=== PATIENT | male | born 1960 | race Caucasian/White ===

== ENCOUNTER 2018-03-20 08:00 | Outpatient (CLI) | payer BC, OTHER ==
[2018-03-20 12:20] LABS: ALBUMIN 3.7 g/dL (3.2-5.5); ALBUMIN/GLOBULIN RATIO 0.9 (1.0-2.2); ALKALINE PHOSPHATASE 58 IU/L (42-121); ALT ALANINE AMINOTRANSFERASE 26 IU/L (10-60); AST ASPARTATE AMINOTRANSFERASE 25 IU/L (10-42); BILIRUBIN,TOTAL 0.5 mg/dL (0.2-1.0); BUN - BLOOD UREA NITROGEN 19 mg/dL (6-20); CALCIUM 8.7 mg/dL (8.5-10.3); CARBON DIOXIDE - CO2 28 mmol/L (21-32); CHLORIDE 102 mmol/L (101-111); CHOL/HDL RATIO 4.4 (<5.0); CHOLESTEROL 162 mg/dL; CREATININE 0.9 mg/dL (0.6-1.2); GFR - MDRD 86 (>89); GLUCOSE 93 mg/dL (70-100); HDL CHOLESTEROL 37 mg/dL; LDL CHOLESTEROL,CALCULATED 80 mg/dL; LDL/HDL RATIO 2.2 (<3.6); SODIUM 135 mmol/L (135-145); TOTAL PROTEIN 7.6 g/dL (6.7-8.2); VLDL CHOLESTEROL 45 mg/dL
== END 2018-03-20 08:01 | disposition home or self-care (01) ==
LOC: LAB.WCP 08:00
PROVIDERS: ATTEND Family Medicine
DX: Z00.00 Encounter for general adult medical examination without abnormal findings (principal); R03.0 Elevated blood-pressure reading, without diagnosis of hypertension; E29.1 Testicular hypofunction; E55.9 Vitamin D deficiency, unspecified; E78.9 Disorder of lipoprotein metabolism, unspecified; Z12.5 Encounter for screening for malignant neoplasm of prostate
CPT/HCPCS: 36415; 80053; 80061; 82306; 83721; 84153

== ENCOUNTER 2018-12-24 15:25 | Outpatient (CLI) | payer OTHER | END 2018-12-24 15:26 | disposition home or self-care (01) | LOC: SC 15:25 | PROVIDERS: ATTEND Internal Medicine Pulmonary Disease | DX: R06.81 Apnea, not elsewhere classified (principal); G47.8 Other sleep disorders; R06.83 Snoring; E66.9 Obesity, unspecified; Z68.35 Body mass index [BMI] 35.0-35.9, adult; Z87.891 Personal history of nicotine dependence | CPT/HCPCS: 99203; 99212 ==

== ENCOUNTER 2019-02-01 19:31 | Outpatient (CLI) | payer OTHER | END 2019-02-01 19:32 | disposition home or self-care (01) | LOC: SC 19:31 | PROVIDERS: ATTEND Internal Medicine Pulmonary Disease | DX: Z53.9 Procedure and treatment not carried out, unspecified reason (principal) ==

== ENCOUNTER 2019-02-02 18:54 | Outpatient (CLI) | payer OTHER | END 2019-02-02 18:55 | disposition home or self-care (01) | LOC: RT 18:54 | PROVIDERS: ATTEND Internal Medicine Gastroenterology | DX: I49.9 Cardiac arrhythmia, unspecified (principal); R03.0 Elevated blood-pressure reading, without diagnosis of hypertension | CPT/HCPCS: 93005 ==

== ENCOUNTER 2019-02-07 11:24 | Day surgery (SDC) | payer OTHER ==
[2019-02-07] MEDS ORDERED: LACTATED RINGERS 1,000 ML IV ONE (11:53)
[2019-02-07] MEDS ORDERED: LIDO GARGLE 30 ML BOTTLE ONE (12:36)
[2019-02-07] MEDS ORDERED: fentaNYL 250 MCG/5 ML VIAL IVP ONE (13:05)
[2019-02-07] MEDS ORDERED: MIDAZOLAM 2 MG/2 ML VIAL IVP ONE (13:05)
[2019-02-07 14:03] VITALS: BP 148/98
== END 2019-02-07 11:25 | disposition home or self-care (01) ==
LOC: SDS 11:24
PROVIDERS: ATTEND Internal Medicine Gastroenterology
PROC: 0DB38ZX Excision of Lower Esophagus, Via Natural or Artificial Opening Endoscopic, Diagnostic (ICD-10-PCS; principal; 2019-02-07 12:45)
PROC: 0DBK8ZZ Excision of Ascending Colon, Via Natural or Artificial Opening Endoscopic (ICD-10-PCS; 2019-02-07 12:45)
DX: Z12.11 Encounter for screening for malignant neoplasm of colon (principal); D12.2 Benign neoplasm of ascending colon; K22.70 Barrett's esophagus without dysplasia; K21.9 Gastro-esophageal reflux disease without esophagitis; E66.9 Obesity, unspecified; Z68.35 Body mass index [BMI] 35.0-35.9, adult; G47.9 Sleep disorder, unspecified; N40.1 Benign prostatic hyperplasia with lower urinary tract symptoms; N13.8 Other obstructive and reflux uropathy; R03.0 Elevated blood-pressure reading, without diagnosis of hypertension; E55.9 Vitamin D deficiency, unspecified; E78.5 Hyperlipidemia, unspecified; I49.9 Cardiac arrhythmia, unspecified; Z79.82 Long term (current) use of aspirin; Z87.891 Personal history of nicotine dependence
CPT/HCPCS: 43239; 45380; A9270; J3010; J7120

== ENCOUNTER 2019-03-21 20:33 | Outpatient (CLI) | payer BC, OTHER | END 2019-03-21 20:34 | disposition home or self-care (01) | LOC: SC 20:33 | PROVIDERS: ATTEND Internal Medicine Pulmonary Disease | DX: G47.33 Obstructive sleep apnea (adult) (pediatric) (principal); G47.61 Periodic limb movement disorder | CPT/HCPCS: 95811 ==

== ENCOUNTER 2019-04-01 09:58 | Outpatient (CLI) | payer BC, OTHER | END 2019-04-01 09:59 | disposition home or self-care (01) | LOC: SC 09:58 | PROVIDERS: ATTEND Internal Medicine Pulmonary Disease | DX: G47.33 Obstructive sleep apnea (adult) (pediatric) (principal) | CPT/HCPCS: 99212; 99213 ==

== ENCOUNTER 2019-06-18 13:29 | Outpatient (CLI) | payer BC, OTHER ==
--- NOTE | 2019-06-18 15:21 | SLEEP CARE CONSULTATION ---
Information from patient questionnaire entered by Charity Lam. I have reviewed and concur with the information entered by Charity Lam. This document represents the service I personally performed and the decisions made by me, Vladimir Santiago MD, [facility]. History of Present Illness Previous diagnosis: Severe, Obstructive Sleep Apnea-Hypopnea Syndrome AHI: 39.2 Reason for CPAP/BiPAP follow up: first compliance Equipment type: CPAP Equipment obtained from: [employer] Mask style: Full face Mask brand: kenxus HPI additional information: HPI: Mr. Carmichael returned today for follow up of nasal CPAP therapy. He was diagnosed to have severe obstructive sleep apnea-hypopnea syndrome. The patient wears a full face mask. He reports using the device nightly and all through the night. The compliance report shows usage in 30 nights out of the past 30 nights, averaging 6.1 hours a night. He complained of dryness but no particular problem with the device such as soreness on the face, epistaxis, nasal congestion or headache. He has the heated humidifier set at 5 (max). He thinks that the pressure 10 15.5 cmH2O (10 15 cmH2O on the prescription) is comfortable. On the CPAP therapy he notices improvement in his sleep quality, and that he wakes up feeling fresher in the morning and more awake/alert during the day. The average residual AHI is 2.7; and average time in large leak per day is 4 hours. The 90th percentile pressure is 10.5 cmH2O. CPAP Compliance Data - Data Reviewed with Patient Average duration of nightly device use: 6h 6m Compliance rate %: 96.7 Current pressure setting (cmH2O): 10-15.5 Humidity settin Heated hose settin Subjective Patient concerns: reports: nasal congestion, dry mouth, nose, throat Current pressure setting perceived as: comfortable Initial [place] Sleepiness Scale score: 7 Current [place] Sleepiness Scale score: 7 Allergies and Home Medications Drug allergies reviewed: Yes Home medication list reviewed: Yes Review of Systems Review of systems same as previous: Yes Physical Exam Weight (kg): 280 lb Impression and Plan IMPRESSION: 1. Obstructive Sleep Apnea-Hypopnea Syndrome, severe, with the patient doing well on nasal CPAP therapy. He has excellent compliance and significant clinical improvement. The current pressure appears effective and comfortable but the air leak is high. Overall, he is very satisfied with treatment and plans to continue with it long-term. I will lower the pressure a little. PLAN: 1. Lower autoCPAP set to 8 - 13 cmH2O. 2. Try to lose weight 3. Try other masks and nasal pillows. 4. Return for a follow up in 2 months to recheck air leak and residual AHI. I spent 100% of this [15][30] minute visit face to face with the patient with greater than 50% of this was spent time counseling the patient and coordination of care.
== END 2019-06-18 13:30 | disposition home or self-care (01) ==
LOC: SC 13:29
PROVIDERS: ATTEND Internal Medicine Pulmonary Disease
DX: G47.33 Obstructive sleep apnea (adult) (pediatric) (principal)
CPT/HCPCS: 99212; 99213

== ENCOUNTER 2019-08-20 14:44 | Outpatient (CLI) | payer BC, OTHER ==
--- NOTE | 2019-08-20 15:31 | SLEEP CARE CONSULTATION ---
Information from patient questionnaire entered by Charity Lam. I have reviewed and concur with the information entered by Charity Lam. This document represents the service I personally performed and the decisions made by me, Vladimir Santiago MD, [facility]. History of Present Illness Previous diagnosis: Severe, Obstructive Sleep Apnea-Hypopnea Syndrome AHI: 39.2 Reason for follow up: other (2 month- pressure change) Equipment type: CPAP Equipment obtained from: [employer] Prior sleep studies: Yes HPI additional information: HPI: Mr. Carmichael returned today for follow up of nasal CPAP therapy. He was diagnosed to have severe obstructive sleep apnea-hypopnea syndrome. The patient wears a full face mask (not the Respironics DreamWear nasal cushion mask that we tested him on). He continues to use the device nightly and all through the night. The compliance report shows usage in 60 nights out of the past 60 nights, averaging 5.4 hours a night. He complained of dryness but no particular problem with the device such as soreness on the face, epistaxis, nasal congestion or headache. He has the heated humidifier set at 5 (max). He thinks that the pressure 8 - 13 cmH2O (was 10 15.5 cmH2O) is comfortable. On the CPAP therapy he notices improvement in his sleep quality, and that he wakes up feeling fresher in the morning and more awake/alert during the day. The average residual AHI is 6.3 (was 2.7); and average time in large leak per day is 5.4 (was 4 hours). The 90th percentile pressure is 8.1 cmH2O. CPAP Compliance Data - Data Reviewed with Patient Average duration of nightly device use: 5h 26m Compliance rate %: 81.7 Current pressure setting (cmH2O): 8-13 Humidity settin Heated hose settin Average residual AHI: 6.3 Average large leak: 5h 22m 40s Subjective Patient concerns: reports: dry mouth, nose, throat, epistaxis (slight in morning) Current pressure setting perceived as: comfortable Initial [place] Sleepiness Scale score: 7 Current [place] Sleepiness Scale score: 7 Allergies and Home Medications Drug allergies reviewed: Yes Home medication list reviewed: Yes Review of Systems Review of systems same as previous: Yes Physical Exam Weight: 280 lb Impression and Plan 1. Obstructive Sleep Apnea-Hypopnea Syndrome, severe, with the patient doing f airly well on nasal CPAP therapy. He has excellent compliance and significant clinical improvement. The current pressure appears slightly ineffective and the air leak is high. Overall, he is very satisfied with treatment and plans to continue with it long-term. I will not raise the pressure back up because the high residual AHI value could be from air leak. I recommend he go back to the Respironics DreamWear nasal cushion mask for a week or two to see if it would make a difference. If not, we will do a full night of manual CPAP/BiPAP titration study (his last sleep study was a split-night). PLAN: 1. Leave autoCPAP at 8 - 13 cmH2O. 2. Try the Respironics DreamWear nasal cushion mask again for 1 2 weeks. 4. Return for a follow up in 1 month to recheck air leak and residual AHI. I spent 100% of this 20 minute visit face to face with the patient with greater than 50% of this was spent time counseling the patient and coordination of care.
== END 2019-08-20 14:45 | disposition home or self-care (01) ==
LOC: SC 14:44
PROVIDERS: ATTEND Internal Medicine Pulmonary Disease
DX: G47.33 Obstructive sleep apnea (adult) (pediatric) (principal)
CPT/HCPCS: 99212; 99213

== ENCOUNTER 2019-11-20 11:14 | Outpatient (CLI) | payer BC, OTHER ==
[2019-11-20 12:23] VITALS: BP 136/90
--- NOTE | 2019-11-20 12:23 | SLEEP CARE CONSULTATION ---
Information from patient questionnaire entered by Maria A Mackenzie. I have reviewed and concur with the information entered by Maria A Mackenzie. This document represents the service I personally performed and the decisions made by me, Itzel Quinonez, RN, MSN, [employer]. History of Present Illness Previous diagnosis: Severe, Obstructive Sleep Apnea-Hypopnea Syndrome AHI: 39.2 Reason for follow up: other (2 month) Equipment type: CPAP Equipment obtained from: [employer] Mask style: Full face Mask brand: Respironics (Dreamwear - medium body, large cushion) Backup mask available: Yes Last cushion change: not since given - used 2 months HPI additional information: He changed his full face mask style to one used in his sleep study. He is finding it fits much better. However, he was sent the old mask style he was set up with Air Fit F20. He just received new supplies. CPAP Compliance Data - Data Reviewed with Patient Average duration of nightly device use: 5.3 Compliance rate %: 85 (60 days) Current pressure setting (cmH2O): 8-13 Humidity settin Heated hose settin Average residual AHI: 6.9 Average large leak: 3 hr 47 min 24 sec Subjective Patient concerns: reports: air blowing in eyes (rarely ), dry mouth, nose, throat (dry mouth - severe - nightly ). denies: aerophagia, mask discomfort, mask leak noise, condensation in mask/hose, nasal congestion, epistaxis Observed to snore while using device: No Current pressure setting perceived as: comfortable (with using ramp at initiation) On therapy, patient: denies: drowsiness while driving (no current change) Initial [place] Sleepiness Scale score: 7 Current [place] Sleepiness Scale score: 9 (He was not tired before use of CPAP ) Allergies and Home Medications Known drug allergies: No Home medication list reviewed: Yes Allergy and home medication list: Medication List Medication Name (generic/name brand) Strength & Dosage Lisinopril 10mg tab one daily Multivitamins Tab one daily Aspirin EC 81mg tab one daily Omeprazole 20mg cap one daily Vitamin D 1000IU tab one daily Physical Exam Blood Pressure: 136/90 (monitors at home and runs 125/ 85) Cuff size: long Heart Rate: 64 O2 Saturation: 98 Height: 6 ft 3 in Weight: 280 lb Weight change since last visit: gained 5 pounds Body Mass Index: 34.9 BMI Classification: Obese Impression and Plan 1. Obstructive Sleep Apnea-Hypopnea Syndrome, severe, with good treatment compliance and slightly elevated residual AHI. On CPAP therapy, the patient has better sleep quality and is more rested overall. Since his Dreamwear full face mask is fitting better then mask given by [facility], a mask specific prescription. He can call [facility] as well to check if he can return old style masks not used. The mask leaks have reduced from 5 hours 22 minutes to 3 hours and 47 minutes. Thus he is advised to slightly adjust mask and check fit on his CPAP machine when awakens so he can adjust further. To reduce AHI further I will slightly increase his autoCPAP range to [id number]. He is advised to contact this office if the pressure change is uncomfortable. Oral dryness can be reduced by adjusting humidity setting higher or heated hose lower or by adjusting both settings. Printed instructions given on how to change humidity and heated hose settings with rationale explaining why to change. Oral dryness can also be reduced by reducing mask leaks. Patient advised that chronic oral dryness can affect dental health and advised to follow up with dentist. In addition, there are oral dryness products that can be used to reduce dryness such as Biotene products, Smart mouth rinse and Xylomelts. Patient to discuss best option with dentist.Patient's apnea severity and rationale for treatment to reduce apnea, improve sleep quality and reduce cardiovascular and cerebrovascular events was reviewed. I also reviewed the benefit of consistent device use of CPAP for hypertension, gastric reflux . * * Change CPAP pressure to 9-14 cmH2O * Adjust mask * Mask specific prescription made * Implement methods to reduce oral dryness. * Notify me if snoring with mask or feeling that the pressure is too much or too little * Attempt to lose weight * Call this office if any problems using CPAP * Return for follow up in 2 months , or sooner if concerns arise Time Spent with Patient (minutes): 38 I spent 100% of this visit face to face with the patient with greater than 50% of this was spent time counseling the patient and coordination of care.
== END 2019-11-20 11:15 | disposition home or self-care (01) ==
LOC: SC 11:14
PROVIDERS: ATTEND Nurse Practitioner Family
DX: G47.33 Obstructive sleep apnea (adult) (pediatric) (principal); E66.9 Obesity, unspecified; Z68.34 Body mass index [BMI] 34.0-34.9, adult
CPT/HCPCS: 99212; 99214

== ENCOUNTER 2020-01-20 17:04 | Outpatient (CLI) | payer BC, OTHER ==
--- NOTE | 2020-01-20 17:22 | SLEEP CARE CONSULTATION ---
Information from patient questionnaire entered by Charity Lam. I have reviewed and concur with the information entered by Charity Lam. This document represents the service I personally performed and the decisions made by me, Itzel Quinonez, RN, MSN, [employer]. History of Present Illness Service Date and Time: 01/20/2020 1630 Previous diagnosis: Severe, Obstructive Sleep Apnea-Hypopnea Syndrome AHI: 39.2 Reason for follow up: other (2 month) Equipment type: CPAP Equipment obtained from: [employer] (just called re supplies) Mask style: Full face (Dreamwear full face) Mask brand: Respironics Backup mask available: Yes Last cushion change: 2 months CPAP Compliance Data - Data Reviewed with Patient Average duration of nightly device use: 5h 12m Compliance rate %: 73.3 Current pressure setting (cmH2O): 9-14 Humidity settin Heated hose settin Average residual AHI: 3.0 Average large leak: 3h 5m 30s Subjective Patient concerns: reports: mask leak noise (most nights the last month due to old mask cushon ? and dalton growth. ), dry mouth, nose, throat (mouth most nigths - humidifier using water). denies: aerophagia, mask discomfort, air blowing in eyes, condensation in mask/hose, nasal congestion, epistaxis, other Observed to snore while using device: No Current pressure setting perceived as: comfortable On therapy, patient: reports: more rested overall (mildly more rested) Initial [place] Sleepiness Scale score: 7 Current [place] Sleepiness Scale score: 7 Allergies and Home Medications Home medication list reviewed: No (no changes) Review of Systems Review of systems same as previous: Yes Physical Exam Height: 6 ft 3 in Impression and Plan 1. Obstructive Sleep Apnea-Hypopnea Syndrome, severe, with good treatment compliance and good apnea control. On CPAP therapy, the patient is slightly more rested overall. The new pressure range brought his residual AHI in normal range. However, he is still experiencing oral dryness. Oral dryness can be reduced by adjusting heated hose lower or by adjusting both settings. Oral dryness can also be reduced by reducing mask leaks and advised to tighten his mask headgear slightly and update his mask cushion. He states his dal[place] also needs trimmed which could affect mask fit. In addition Mask leaks predominately from when patient sleeps on their side can be reduced by using a CPAP pillow. This and other styles can be purchased online. He is aware of the mask fit test on device and advised to check in both sitting and recumbent position to assist mask fit. I again reviewed that chronic oral dry ness can affect dental health. In addition, there are oral dryness products that can be used to reduce dryness such as Biotene products, Dry mouth rinse and Xylomelts. Patient to discuss best option with dentist. I also advised patient to strive for more sleep. If continued significant oral dryness, contact this office. Currently his average is 5 hours and 12 minutes. I explained how most people require 7-9 hours and less than 5-6 hours can increase health risks. It is hoped with the above measures, he will be able to sleep longer. If continued large mask leaks, he is to contact [facility] to see if another mask style is better or other suggestions. This current mask leak is much less than with previous style. Patient's apnea severity and rationale for treatment to reduce apnea, improve sleep quality and reduce cardiovascular and cerebrovascular events was reviewed. I also reviewed how his weight can affect his apnea severity and CPAP pressure and symptoms to report for pressure change. In addition, I answered his questions about compliance data found on his device. * Continue CPAP pressure at 9- 14 cmH2O * Implement methods to reduce oral dryness * Consider CPAP pillow * Notify me if snoring with mask or feeling that the pressure is too much or too little * Attempt to lose weight * Call this office if any problems using CPAP * Return for follow up in 6 months , or sooner if concerns arise Visit Type: Telehealth Phone (to minimize risk of COVID 19 exposure , patient agreed to telehealth visit and to bill insurance.) Patient Location: Home Location of Provider: Home Patient agrees and consents to this telehealth visit type: Yes Time Spent with Patient (minutes): 22 Provider Statement: I spent 100% of the Telehealth Phone Call with the patient with greater than 50% spent counseling the patient and coordination of care.
== END 2020-01-20 17:05 | disposition home or self-care (01) ==
LOC: SC 17:04
PROVIDERS: ATTEND Nurse Practitioner Family
DX: G47.33 Obstructive sleep apnea (adult) (pediatric) (principal)

== ENCOUNTER 2020-07-01 15:17 | Outpatient (CLI) | payer OTHER ==
[2020-07-01 18:55] LABS: CALCIUM 8.9 mg/dL (8.5-10.3); CREATININE 0.9 mg/dL (0.6-1.2)
== END 2020-07-01 23:59 | disposition home or self-care (01) ==
LOC: LAB.WCP 15:17
PROVIDERS: ATTEND Family Medicine
DX: I10 Essential (primary) hypertension (principal); Z12.5 Encounter for screening for malignant neoplasm of prostate
CPT/HCPCS: 36415; 80048; 84153

== ENCOUNTER 2020-08-20 08:28 | Outpatient (CLI) | payer OTHER, BC ==
--- NOTE | 2020-09-15 07:32 | SLEEP CARE CONSULTATION ---
Information from patient questionnaire entered by Maria A Mackenzie. I have reviewed and concur with the information entered by Maria A Mackenzie. This document represents the service I personally performed and the decisions made by , Mel Salomon ARNP. History of Present Illness Service Date and Time: 08/20/2020827 Previous diagnosis: Severe, Obstructive Sleep Apnea-Hypopnea Syndrome AHI: 39.2 (in 2019) Reason for follow up: six month Equipment type: CPAP Equipment obtained from: [employer] (getting supplies as needed) Mask style: Nasal Mask brand: Respironics (Dreamwear) Backup mask available: Yes (other mask) Last cushion change: 3 months Prior sleep studies: Yes Year and Where: 2019 - [facility] Type of Sleep Study: Polysomnography (Split-night) HPI additional information: TAD HARRIS was diagnosed to have moderate, AHI 39.2, obstructive sleep apnea- hypopnea syndrome and returned today for CPAP therapy six month follow-up. CPAP Compliance Data - Data Reviewed with Patient Average duration of nightly device use: 4 hr 22 min Compliance rate %: 66.1 (180 days) Current pressure setting (cmH2O): 9-14 Humidity settin Heated hose settin Average residual AHI: 3.6 Average large leak: 1 hr 56 min Subjective Patient concerns: reports: dry mouth, nose, throat (VERY). denies: aerophagia, mask discomfort, air blowing in eyes, mask leak noise, condensation in mask/hose, nasal congestion, epistaxis, other Observed to snore while using device: No Current pressure setting perceived as: comfortable On therapy, patient: reports: sleeping better, awakening more refreshed, being more awake and alert during the day, more rested overall. denies: drowsiness while driving Initial [place] Sleepiness Scale score: 7 (in 2019) Current [place] Sleepiness Scale score: 8 Allergies and Home Medications Drug allergies reviewed: Yes (NKDA) Home medication list reviewed: Yes (no changes) Review of Systems Review of systems same as previous: Yes (no changes) Physical Exam Heart Rate: 67 O2 Saturation: 92 Height: 6 ft 3 in Weight: 284 lb Body Mass Index: 35.4 BMI Classification: Obese Impression and Plan 1. Obstructive Sleep Apnea-Hypopnea Syndrome, severe, with fair treatment compliance and good apnea control. On CPAP therapy, the patient has better sleep quality and is more rested overall. He has had problems with oral dryness most mornings and has the humidity set at 5. His heated hose is at 3 and he has not tried to reduce this setting. I advised him to reduce this to get more humidity in the air. He does know if he is a mouth breather but he does have some large leaks and dry mouth. I advised him to try a chin strap if adjusting the heated hose is not enough to increase humidity in pressured air. Oral dryness can be reduced by adjusting humidity setting higher or heated hose lower or by adjusting both settings. Oral dryness can also be reduced by reducing mask leaks . Patient advised that chronic oral dryness can affect dental health and advised to follow up with dentist. In addition, there are oral dryness products that can be used to reduce dryness such as Biotene products, Dry mouth rinse and Xylomelts. Patient to discuss best option with dentist. He voiced understanding and agreement with plan. Patient's apnea severity and rationale for treatment to reduce apnea, improve sleep quality and reduce cardiovascular and cerebrovascular events was reviewed. I also reviewed the benefit of consistent device use of CPAP for hypertension and gastric reflux. * Continue auto CPAP pressure at 9-14 cmH2O * Notify me if snoring with mask or feeling that the pressure is too much or too little * Attempt to lose weight * Call this office if any problems using CPAP * Return for follow up in 1 year, or sooner if concerns arise Counseling Topics: Spare mask, Weight loss health impact Visit Type: In Office Time Spent with Patient (minutes): 17 Provider Statement: I spent 100% of the Face to Face Visit with the patient with greater than 50% spent counseling the patient and coordination of care.
== END 2020-08-20 08:29 | disposition home or self-care (01) ==
LOC: SC 08:28
PROVIDERS: ATTEND Nurse Practitioner Family
DX: G47.33 Obstructive sleep apnea (adult) (pediatric) (principal); E66.9 Obesity, unspecified; Z68.35 Body mass index [BMI] 35.0-35.9, adult
CPT/HCPCS: 99212; 99213

== ENCOUNTER 2021-01-27 13:40 | Outpatient (CLI) | payer OTHER, BC ==
[2021-01-27 18:18] LABS: BASOPHILS % (AUTO) 0.5 %; EOSINOPHILS # (AUTO) 0.1 10^3/uL (0.0-0.7); EOSINOPHILS % (AUTO) 2.5 %; HCT - HEMATOCRIT 46.5 % (42.0-52.0); LYMPHOCYTES # (AUTO) 1.4 10^3/uL (1.5-3.5); LYMPHOCYTES % (AUTO) 24.7 %; MEAN CORPUSCULAR HEMOGLOBIN 28.8 pg (27.0-31.0); MEAN CORPUSCULAR HGB CONC 32.3 g/dL (32.0-36.0); MEAN CORPUSCULAR VOLUME 89.4 fL (80.0-94.0); MEAN PLATELET VOLUME 11.1 fL (7.4-11.4); MONOCYTES # (AUTO) 0.5 10^3/uL (0.0-1.0); NEUTROPHILS # (AUTO) 3.6 10^3/uL (1.5-6.6); NEUTROPHILS % (AUTO) 63.9 %; PLT - PLATELET COUNT 197 10^3/uL (130-450); RED CELL DISTRIBUTION WIDTH 12.9 % (12.0-15.0); WHITE BLOOD COUNT 5.6 x10^3/uL (4.8-10.8)
[2021-01-27 18:49] LABS: ALBUMIN 4.1 g/dL (3.2-5.5); ALBUMIN/GLOBULIN RATIO 1.2 (1.0-2.2); ALKALINE PHOSPHATASE 62 IU/L (42-121); ALT ALANINE AMINOTRANSFERASE 25 IU/L (10-60); AST ASPARTATE AMINOTRANSFERASE 23 IU/L (10-42); BILIRUBIN,TOTAL 0.7 mg/dL (0.2-1.0); BUN - BLOOD UREA NITROGEN 23 mg/dL (6-20); CALCIUM 8.9 mg/dL (8.5-10.3); CARBON DIOXIDE - CO2 29 mmol/L (21-32); CHLORIDE 104 mmol/L (101-111); CHOL/HDL RATIO 4.3 (<5.0); CHOLESTEROL 164 mg/dL; CREATININE 0.9 mg/dL (0.6-1.2); GFR - MDRD 86 (>89); GLUCOSE 106 mg/dL (70-100); HDL CHOLESTEROL 38 mg/dL; LDL CHOLESTEROL,CALCULATED 82 mg/dL; LDL/HDL RATIO 2.2 (<3.6); SODIUM 141 mmol/L (135-145); TOTAL PROTEIN 7.4 g/dL (6.7-8.2); TRIGLYCERIDES 222 mg/dL; VLDL CHOLESTEROL 44 mg/dL
[2021-01-27 18:52] LABS: THYROID STIMULATING HORMONE 1.08 uIU/mL (0.34-5.60)
[2021-01-27 18:54] LABS: CRP - C-REACTIVE PROTEIN < 1.0 mg/dL (0-1.0)
[2021-01-27 20:31] LABS: ESTIMATED AVERAGE GLUCOSE 100 mg/dL (70-100); HEMOGLOBIN A1c% 5.1 % (4.27-6.07)
== END 2021-01-27 23:59 | disposition home or self-care (01) ==
LOC: LAB.WCP 13:40
PROVIDERS: ATTEND Family Medicine
DX: R20.2 Paresthesia of skin (principal); I10 Essential (primary) hypertension; R97.20 Elevated prostate specific antigen [PSA]
CPT/HCPCS: 36415; 80053; 80061; 82607; 83036; 83721; 84153; 84443; 85025; 85651; 86140

== ENCOUNTER 2021-08-19 13:07 | Outpatient (CLI) | payer OTHER, BC ==
--- NOTE | 2021-08-19 15:31 | XRAY Report ---
PROCEDURE: Chest 2 View X-Ray INDICATIONS: CHRONIC COUGH TECHNIQUE: 2 view(s) of the chest. COMPARISON: None. FINDINGS: SUPPORT DEVICES: None. LUNGS/PLEURA: Streaky densities in the right midlung zone. No focal consolidation, pleural effusion o r space-occupying pneumothorax. MEDIASTINUM: The cardiomediastinal silhouette is within normal limits. BONES/SOFT TISSUES: No acute abnormality. IMPRESSION: 1.Streaky densities in the right midlung zone, concerning for developing pneumonic infiltrate versus atelectasis/scarring. Reviewed by: Chin Nunez MD on 08/19/2021 3:30 PM PST Approved by: Chin Nunez MD on 08/19/2021 3:30 PM PST Station ID: [id number]
== END 2021-08-19 13:08 | disposition home or self-care (01) ==
LOC: DI.N 13:07
PROVIDERS: ATTEND Family Medicine
DX: R91.8 Other nonspecific abnormal finding of lung field (principal); I10 Essential (primary) hypertension; G62.9 Polyneuropathy, unspecified
CPT/HCPCS: 36415; 80048; 84155; 84165

== ENCOUNTER 2021-08-19 15:32 | Outpatient (CLI) | payer BC, OTHER ==
[2021-08-19 21:07] LABS: CALCIUM 9.1 mg/dL (8.5-10.3); POTASSIUM 3.9 mmol/L (3.5-5.0)
[2021-08-24 15:46] LABS: ALBUMIN 4.1 g/dL (3.8-4.8); ALPHA 1 GLOBULIN 0.3 g/dL (0.2-0.3); ALPHA 2 GLOBULIN 0.6 g/dL (0.5-0.9); BETA 1 GLOBULIN 0.5 g/dL (0.4-0.6); BETA 2 GLOBULIN 0.4 g/dL (0.2-0.5); GAMMA GLOBULIN 1.2 g/dL (0.8-1.7)
== END 2021-08-19 15:33 | disposition home or self-care (01) ==
LOC: LAB.N 15:32
PROVIDERS: ATTEND Family Medicine
DX: I10 Essential (primary) hypertension (principal); G62.9 Polyneuropathy, unspecified
CPT/HCPCS: 36415; 80048; 84155; 84165

== ENCOUNTER 2021-08-25 15:26 | Outpatient (CLI) | payer OTHER, BC ==
[2021-08-25 16:22] VITALS: BP 152/83
--- NOTE | 2021-08-25 16:22 | SLEEP CARE CONSULTATION ---
Information from patient questionnaire entered by Victoria Colbert MA. I have reviewed and concur with the information entered by Victoria Colbert MA. This document represents the service I personally performed and the decisions made by , Mel Salomon ARNP. History of Present Illness Service Date and Time: 08/25/2021 1526 Previous diagnosis: Severe, Obstructive Sleep Apnea-Hypopnea Syndrome AHI: 39.2 (in 2019) Reason for follow up: annual Equipment type: CPAP Equipment obtained from: [employer] (getting supplies as needed) Mask style: Full face Mask brand: Respironics Backup mask available: Yes (old mask) Last cushion change: 2 months Prior sleep studies: Yes Year and Where: 2018 - [facility] Type of Sleep Study: Polysomnography (Split-night) HPI additional information: TAD HARRIS was diagnosed to have severe, AHI 39.2, obstructive sleep apnea- hypopnea syndrome and returned today for CPAP therapy annual follow-up. Sleep Study - Results Type of Sleep Study: Polysomnography (Split-night) Prior sleep studies: Yes Year and Where: 2019 - [facility] CPAP Compliance Data - Data Reviewed with Patient Average duration of nightly device use: 3 hours 34 minutes Compliance rate %: 42.8 Current pressure setting (cmH2O): 9 - 14 Humidity settin Heated hose settin Average residual AHI: 3.1 Central apnea: 0.1 Obstructive apnea: 0.8 Average large leak: 46 minutes 18 seconds Subjective Missed days of use due to: reports: other (does not put on after getting up to bathroom) Patient concerns: reports: dry mouth, nose, throat (nightly, has tried to adjust the humidity). denies: aerophagia, mask discomfort, air blowing in eyes, mask leak noise, condensation in mask/hose, nasal congestion, epistaxis, other Observed to snore while using device: No Current pressure setting perceived as: comfortable On therapy, patient: reports: other (not noticing difference on rest or sleeping betw CPAP and not using it). denies: drowsiness while driving Initial [place] Sleepiness Scale score: 7 (in 2019) Current [place] Sleepiness Scale score: 6 (in 2020) Allergies and Home Medications Home medication list reviewed: Yes (no changes) Review of Systems Review of systems same as previous: Yes (no changes) Physical Exam Vital signs obtained and entered by: Ifeoma Colbert CMA [facility]ACA Blood Pressure: 152/83 (right) Cuff size: wrist Heart Rate: 68 O2 Saturation: 97 (with mask) Height: 6 ft 3 in Weight: 285 lb Body Mass Index: 35.6 BMI Classification: Obese Impression and Plan 1. Obstructive Sleep Apnea-Hypopnea Syndrome, severe, with poor treatment compliance and good apnea control. His compliance has gone down because he will get up to go to the bathroom and then just not put the mask back on. I advised him that he should place his mask on his pillow when getting up to the bathroom to try to remind him to put back on and prevent falling back to sleep without CPAP after using the bathroom. He has also had issues with mouth dryness nightly. Oral dryness can be reduced by adjusting humidity setting higher or heated hose lower or by adjusting both settings. Verbal instructions given on how to change humidity and heated hose settings with rationale explaining why to change. Patient advised that chronic oral dryness can affect dental health and advised to follow up with dentist. In addition, there are oral dryness products that can be used to reduce dryness such as Biotene products, Dry mouth rinse and Xylomelts. Patient to discuss best option with dentist. Patient's apnea severity and rationale for treatment to reduce apnea, improve sleep quality and reduce cardiovascular and cerebrovascular events was reviewed. I also reviewed the benefit of consistent device use of CPAP for hypertension and gastric reflux. Patient was encouraged to lose weight for their overall health and to reduce apneas. * Continue auto CPAP pressure at 9-14 cmH2O * Notify me if snoring with mask or feeling that the pressure is too much or too little * Attempt to lose weight * Call this office if any problems using CPAP * Return for follow up in 1-2 months, or sooner if concerns arise Counseling Topics: Spare mask, Weight loss health impact Visit Type: In Office Time Spent with Patient (minutes): 22 Provider Statement: I spent 100% of the Face to Face Visit with the patient with greater than 50% spent counseling the patient and coordination of care.
== END 2021-08-25 15:27 | disposition home or self-care (01) ==
LOC: SC 15:26
PROVIDERS: ATTEND Nurse Practitioner Family
DX: G47.33 Obstructive sleep apnea (adult) (pediatric) (principal); E66.9 Obesity, unspecified; Z68.35 Body mass index [BMI] 35.0-35.9, adult
CPT/HCPCS: 99212; 99213

== ENCOUNTER 2021-09-21 10:20 | Outpatient (CLI) | payer OTHER, BC ==
--- NOTE | 2021-09-21 14:27 | XRAY Report ---
PROCEDURE: Chest 2 View X-Ray INDICATIONS: COUGH, CHRONIC TECHNIQUE: 2 view(s) of the chest. COMPARISON: CXR 08/19/2021 FINDINGS: Surgical changes and devices: None. Lungs and pleura: No pleural effusions or pneumothorax. Minimal bibasilar hazy opacity is similar to the prior CXR. No consolidation. Mediastinum: Mediastinal contours are unchanged. Heart size is normal. Bones and chest wall: No suspicious bony abnormalities. Soft tissues appear unremarkable. IMPRESSION: Minimal bibasilar hazy opacity. Favor atelectasis or scarring over pneumonia. Reviewed by: Aren Toussaint MD on 09/21/2021 2:25 PM PST Approved by: Aren Toussaint MD on 09/21/2021 2:25 PM PST Station ID: [id number]
== END 2021-09-21 10:21 | disposition home or self-care (01) ==
LOC: DI.N 10:20
PROVIDERS: ATTEND Family Medicine
DX: R91.8 Other nonspecific abnormal finding of lung field (principal)

== ENCOUNTER 2021-10-26 15:53 | Outpatient (CLI) | payer OTHER ==
[2021-10-26 16:23] VITALS: BP 135/71
--- NOTE | 2021-10-26 16:23 | SLEEP CARE CONSULTATION ---
Information from patient questionnaire entered by Victoria Colbert MA. I have reviewed and concur with the information entered by Victoria Colbert MA. This document represents the service I personally performed and the decisions made by , Mel Salomon ARNP. History of Present Illness Service Date and Time: 10/26/2021 1553 Previous diagnosis: Severe, Obstructive Sleep Apnea-Hypopnea Syndrome AHI: 39.2 (in 2019) Reason for follow up: other (2 MONTH F/U) Equipment type: CPAP Equipment obtained from: [email or web address] (getting supplies as needed) Mask style: Full face Backup mask available: Yes (old mask) Last cushion change: within a month Prior sleep studies: Yes Year and Where: 2018 - [facility] HPI additional information: TAD HARRIS was diagnosed to have severe, AHI 39.2, obstructive sleep apnea- hypopnea syndrome and returned today for CPAP therapy 2 month follow-up. Sleep Study - Results Type of Sleep Study: Polysomnography (Split-night) Prior sleep studies: Yes Year and Where: 2019 - [facility] CPAP Compliance Data - Data Reviewed with Patient Average duration of nightly device use: 3 HOURS 46 MINUTES Compliance rate %: 44.4 Current pressure setting (cmH2O): 9-14 Humidity settin Heated hose settin Average residual AHI: 3.1 Average large leak: 14 MINUTES 35 SECONDS Subjective Missed days of use due to: reports: illness (headcold) Patient concerns: denies: aerophagia, mask discomfort, air blowing in eyes, mask leak noise, condensation in mask/hose, nasal congestion, dry mouth, nose, throat, epistaxis, other Observed to snore while using device: No Current pressure setting perceived as: comfortable On therapy, patient: reports: sleeping better, more rested overall. denies: drowsiness while driving Initial [place] Sleepiness Scale score: 7 (2018) Current [place] Sleepiness Scale score: 8 (2021) Allergies and Home Medications Known drug allergies: No Drug allergies reviewed: Yes Home medication list reviewed: Yes (no changes) Review of Systems Review of systems same as previous: Yes (no changes) Physical Exam Vital signs obtained and entered by: DANYELL Colbert Blood Pressure: 135/71 (RIGHT, PULSE 62) Heart Rate: 61 O2 Saturation: 98 (WITH KN95 MASK) Height: 6 ft 3 in Weight: 285 lb (PER PATIENT) Body Mass Index: 35.6 BMI Classification: Obese Impression and Plan 1. Obstructive Sleep Apnea-Hypopnea Syndrome, severe, with poor treatment compliance and good apnea control. On CPAP therapy, the patient has better sleep quality and is more rested overall. Patient states that he thinks a change in mask would be beneficial. He has a hard time putting the mask with headgear on when going back to bed during the night after getting up for bathroom. His has a nasal pillows mask that he feels would work better for him. I will write for a mask refitting to get a nasal pillows mask. If he has his mouth come open he was instructed to try a chinstrap with the nasal pillows mask. He voiced understanding. Patient's apnea severity and rationale for treatment to reduce apnea, improve sleep quality and reduce cardiovascular and cerebrovascular events was reviewed. I also reviewed the benefit of consistent device use of CPAP for hypertension and gastric reflux. Patient was encouraged to try to lose weight for his overall health and to reduce apneas. I will have him follow up in about 3 months to see how he is doing with new mask and compliance. * Continue auto CPAP pressure at 9-14 cmH2O * Mask refitting for nasal pillow mask * Notify me if snoring with mask or feeling that the pressure is too much or too little * Attempt to lose weight * Call this office if any problems using CPAP * Return for follow up in 3 months, or sooner if concerns arise Counseling Topics: Spare mask, Weight loss health impact Visit Type: In Office Time Spent with Patient (minutes): 18 Provider Statement: I spent 100% of the Face to Face Visit with the patient with greater than 50% spent counseling the patient and coordination of care.
== END 2021-10-26 15:54 | disposition home or self-care (01) ==
LOC: SC 15:53
PROVIDERS: ATTEND Nurse Practitioner Family
DX: G47.33 Obstructive sleep apnea (adult) (pediatric) (principal); E66.9 Obesity, unspecified; Z68.35 Body mass index [BMI] 35.0-35.9, adult
CPT/HCPCS: 99212

== ENCOUNTER 2022-01-18 15:54 | Outpatient (CLI) | payer OTHER ==
[2022-01-18 16:32] VITALS: BP 129/71
--- NOTE | 2022-01-18 16:32 | SLEEP CARE CONSULTATION ---
Information from patient questionnaire entered by Victoria Colbert MA. I have reviewed and concur with the information entered by Victoria Colbert MA. This document represents the service I personally performed and the decisions made by , Mel Salomon ARNP. History of Present Illness Service Date and Time: 01/18/2022 1554 Previous diagnosis: Severe, Obstructive Sleep Apnea-Hypopnea Syndrome AHI: 39.2 (in 2019) Reason for follow up: three month (MASK FITTING, ) Equipment type: CPAP Equipment obtained from: [employer] (getting supplies as needed) Mask style: Full face Mask brand: Respironics Backup mask available: Yes (old mask) Last cushion change: 1 month Prior sleep studies: Yes Year and Where: 2018 - [facility] Type of Sleep Study: Polysomnography (Split-night) HPI additional information: TAD HARRIS was diagnosed to have severe, AHI 39.2, obstructive sleep apnea- hypopnea syndrome and returned today for CPAP therapy three month for follow-up. Sleep Study - Results Type of Sleep Study: Polysomnography (Split-night) Prior sleep studies: Yes Year and Where: 2018 - [facility] CPAP Compliance Data - Data Reviewed with Patient Average duration of nightly device use: 3 HOURS 43 MINUTES Compliance rate %: 45.6 Current pressure setting (cmH2O): 9-14 Average residual AHI: 2.9 Central apnea: 0.2 Obstructive apnea: 0.8 Average large leak: 10 MINUTES 54 SECONDS Subjective Patient concerns: reports: dry mouth, nose, throat (occasional, not to), other (just not sleeping more than around 4 hrs nightly). denies: aerophagia, mask discomfort, air blowing in eyes, mask leak noise, condensation in mask/hose, nasal congestion, epistaxis Observed to snore while using device: No Current pressure setting perceived as: comfortable On therapy, patient: reports: sleeping better, more rested overall. denies: drowsiness while driving Initial [place] Sleepiness Scale score: 7 (2018) Current [place] Sleepiness Scale score: 9 (12/2021) Allergies and Home Medications Known drug allergies: No Drug allergies reviewed: Yes Home medication list reviewed: Yes (no changes) Allergy and home medication list: Allergies No Known Drug Allergies Allergy (Verified 02/07/19 11:43) Review of Systems Review of systems same as previous: Yes (no changes) Physical Exam Vital signs obtained and entered by: Ifeoma COLBERT CMA AADANYELL Blood Pressure: 129/71 (RIGHT, PULSE 62, RESP 15,) Heart Rate: 61 O2 Saturation: 97 (N95) Height: 6 ft 3 in Weight: 290 lb (PER PT WITH CLOTHES) Body Mass Index: 36.2 BMI Classification: Obese Impression and Plan 1. Obstructive Sleep Apnea-Hypopnea Syndrome, severe, with poor treatment compliance and good apnea control. On CPAP therapy, the patient has better sleep quality and is more rested overall. He tried his 's nasal pillows mask and he did not like the way it worked. He would like to continue with the full face mask. He does get occasional mouth dryness. His humidity is set at 4 and heated hose at 3. I advised to try to go down one on the heated hose to reduce oral dryness. He may go back up if he finds he is getting condensation in the mask or hose. He voiced understanding. He is just about 15 minutes under compliance time nightly average. He states he does read for 10-15 minutes prior to putting on his mask and going to sleep. I advised him to put the mask on before he starts reading since he gets really sleepy while reading and this will help him more easily reach compliance. He states he rarely sleeps more than 4 hours on a regular basis but sometimes he can get as much as 7 hours. Patient's apnea severity and rationale for treatment to reduce apnea, improve sleep quality and reduce cardiovascular and cerebrovascular events was reviewed. I also reviewed the benefit of consistent device use of CPAP for hypertension and gastric reflux. 2. Obesity, unspecified. Currently patients BMI is 36.2. Obesity increases the risk of apnea, CPAP pressure requirements and overall health risks especially cardiovascular and diabetes. * Continue auto CPAP pressure at 9-14 cmH2O * Notify me if snoring with mask or feeling that the pressure is too much or too little * Attempt to lose weight * Call this office if any problems using CPAP * Return for follow up in 1-2 months, or sooner if concerns arise Counseling Topics: Spare mask, Weight loss health impact Visit Type: In Office Time Spent with Patient (minutes): 20 Provider Statement: I spent 100% of the Face to Face Visit with the patient with greater than 50% spent counseling the patient and coordination of care.
== END 2022-01-18 15:55 | disposition home or self-care (01) ==
LOC: SC 15:54
PROVIDERS: ATTEND Nurse Practitioner Family
DX: G47.33 Obstructive sleep apnea (adult) (pediatric) (principal); E66.9 Obesity, unspecified; Z68.36 Body mass index [BMI] 36.0-36.9, adult
CPT/HCPCS: 99212; 99213

== ENCOUNTER 2022-03-15 16:04 | Outpatient (CLI) | payer OTHER ==
[2022-03-15 16:43] VITALS: BP 157/82
--- NOTE | 2022-03-15 16:43 | SLEEP CARE CONSULTATION ---
Information from patient questionnaire entered by Victoria Colbert MA. I have reviewed and concur with the information entered by Victoria Colbert MA. This document represents the service I personally performed and the decisions made by , Mel Salomon ARNP. History of Present Illness Service Date and Time: 03/15/2022 1604 Previous diagnosis: Severe, Obstructive Sleep Apnea-Hypopnea Syndrome AHI: 39.2 (in 2018) Reason for follow up: other (2 MONTH F/U, ASHLEIGH, BATRES 04-24-2019, ) Equipment type: CPAP Equipment obtained from: [employer] (getting supplies as needed) Mask style: Full face Mask brand: Resmed Backup mask available: Yes (old mask) Last cushion change: last month Prior sleep studies: Yes Year and Where: 2018 - [facility] Type of Sleep Study: Polysomnography (Split-night) HPI additional information: TAD HARRIS was diagnosed to have severe, AHI 39.4, obstructive sleep apnea- hypopnea syndrome and returned today for CPAP therapy two month follow-up. Sleep Study - Results Type of Sleep Study: Polysomnography (Split-night) Prior sleep studies: Yes Year and Where: 2018 - [facility] CPAP Compliance Data - Data Reviewed with Patient Average duration of nightly device use: 3 hours 41 minutes Compliance rate %: 46.1 (09/15/2021-03/13/2022; 180 days; usage 179/180) Current pressure setting (cmH2O): 9-14 Humidity settin Heated hose settin Average residual AHI: 3.1 Average large leak: 12 MINUTES 28 SECONDS Subjective Patient concerns: reports: dry mouth, nose, throat (slight/ occasional). denies: aerophagia, mask discomfort, air blowing in eyes, mask leak noise, condensation in mask/hose, nasal congestion, epistaxis, other Observed to snore while using device: No Current pressure setting perceived as: comfortable On therapy, patient: reports: sleeping better, awakening more refreshed, being more awake and alert during the day, more rested overall, other (has not noticed a big difference betw when started CPAP to now). denies: drowsiness while driving Initial [place] Sleepiness Scale score: 7 (2018) Current [place] Sleepiness Scale score: 9 (03/15/2022) Allergies and Home Medications Known drug allergies: No Drug allergies reviewed: Yes Home medication list reviewed: Yes (no changes) Allergy and home medication list: Allergies No Known Drug Allergies Allergy (Verified 02/07/19 11:43) Review of Systems Review of systems same as previous: Yes (no changes) Physical Exam Vital signs obtained and entered by: BABATUNDE RAGSDALE Blood Pressure: 157/82 (PULSE 62, RESP 18, RIGHT, ) Cuff size: wrist Heart Rate: 60 O2 Saturation: 96 (N95) Height: 6 ft 3 in Weight: 290 lb Body Mass Index: 36.2 BMI Classification: Obese Impression and Plan 1. Obstructive Sleep Apnea-Hypopnea Syndrome, severe, with poor treatment compliance and good apnea control. On CPAP therapy, the patient has better sleep quality and is more rested overall. His compliance is still low. He does show using it 179/180 days but half of the time he gets an average of only 3 hours 41 minutes of time on CPAP. He voiced understanding and will try to increase his time in the mask. Patient denies problems with oral dryness, nasal congestion, epistaxis, skin irritation or aerophagia. Patient's apnea severity and rationale for treatment to reduce apnea, improve sleep quality and reduce cardiovascular and cerebrovascular events was reviewed. I also reviewed the benefit of consistent device use of CPAP for hypertension and gastric reflux. 2. Obesity, unspecified. Currently patients BMI is 36.2. Obesity increases the risk of apnea, CPAP pressure requirements and overall health risks especially cardiovascular and diabetes. * Continue auto CPAP pressure at 9-14 cmH2O * Notify me if snoring with mask or feeling that the pressure is too much or too little * Attempt to lose weight * Call this office if any problems using CPAP * Return for follow up in 1-2 months, or sooner if concerns arise Counseling Topics: Weight loss health impact Visit Type: In Office Time Spent with Patient (minutes): 15 Provider Statement: I spent 100% of the Face to Face Visit with the patient with greater than 50% spent counseling the patient and coordination of care.
== END 2022-03-15 16:05 | disposition home or self-care (01) ==
LOC: SC 16:04
PROVIDERS: ATTEND Nurse Practitioner Family
DX: G47.33 Obstructive sleep apnea (adult) (pediatric) (principal); E66.9 Obesity, unspecified; Z68.36 Body mass index [BMI] 36.0-36.9, adult
CPT/HCPCS: 99212

== ENCOUNTER 2022-04-26 16:09 | Outpatient (CLI) | payer OTHER ==
--- NOTE | 2022-04-26 16:44 | SLEEP CARE CONSULTATION ---
Information from patient questionnaire entered by Victoria Colbert MA. I have reviewed and concur with the information entered by Victoria Colbert MA. This document represents the service I personally performed and the decisions made by , Mel Salomon ARNP. History of Present Illness Service Date and Time: 04/26/2022 1609 Previous diagnosis: Severe, Obstructive Sleep Apnea-Hypopnea Syndrome AHI: 39.2 (in 2019) Reason for follow up: other (6 WEEK F/U, ASHLEIGH, 04/24/2019, ) Equipment type: CPAP Equipment obtained from: [employer] (getting supplies as needed) Mask style: Full face Mask brand: Respironics Backup mask available: Yes (old mask) Last cushion change: 3 days Prior sleep studies: Yes Year and Where: 2018 - [facility] Type of Sleep Study: Polysomnography (Split-night) HPI additional information: TAD HARRIS was diagnosed to have severe, AHI 39.2, obstructive sleep apnea- hypopnea syndrome and returned today for CPAP therapy 6 week follow-up. Sleep Study - Results Type of Sleep Study: Polysomnography (Split-night) Prior sleep studies: Yes Year and Where: 2018 - [facility] CPAP Compliance Data - Data Reviewed with Patient Average duration of nightly device use: 3 HOURS 51 MINUTES Compliance rate %: 52.2 (01/25/22-04/24/22; 89/90 days) Current pressure setting (cmH2O): 9-14 Humidity settin Heated hose settin Average residual AHI: 3.3 Average large leak: 17 MIN 19 SEC Subjective Missed days of use due to: reports: illness (COVID, NECK INJURY) Patient concerns: reports: nasal congestion (due to illness), dry mouth, nose, throat (improved). denies: aerophagia, mask discomfort, air blowing in eyes, mask leak noise, condensation in mask/hose, epistaxis, other Observed to snore while using device: No Current pressure setting perceived as: comfortable On therapy, patient: reports: sleeping better. denies: drowsiness while driving Initial [place] Sleepiness Scale score: 7 (2018) Current [place] Sleepiness Scale score: 9 (04/26/2022) Allergies and Home Medications Home medication list reviewed: Yes (no changes) Allergy and home medication list: Allergies No Known Drug Allergies Allergy (Verified 02/07/19 11:43) Review of Systems Review of systems same as previous: No (Covid first of April; having neck pain now) Physical Exam Vital signs obtained and entered by: BABATUNDE RAGSDALE Blood Pressure: 126/76 (RESP 18, PULSE 72, RIGHT,) Cuff size: wrist Heart Rate: 68 O2 Saturation: 98 Height: 6 ft 3 in Weight: 285 lb (CLOTHES) Weight change since last visit: April - COVID, NCK INJURY SO CANT WORK OUT, Body Mass Index: 35.6 BMI Classification: Obese Impression and Plan 1. Obstructive Sleep Apnea-Hypopnea Syndrome, severe, with fair treatment compliance and good apnea control. On CPAP therapy, the patient has better sleep quality and is more rested overall. Patient has significant improvement of his sleep apnea and is satisfied with current CPAP therapy. He was recently sick with COVID infection and was not able to improve his CPAP compliance. He feels now that he is over COVID he can try harder to make sure he is getting at least 4 hours if not more at night on the CPAP. He is within minutes of having the 4 hours a night. He states he is able to remember to put the mask on when he comes back from the bathroom at night. He did put on the CPAP 89/90 days in last 90 days. I am going to have patient come in in 1 to 2 months to recheck compliance. Patient's apnea severity and rationale for treatment to reduce apnea, improve sleep quality and reduce cardiovascular and cerebrovascular events was reviewed. I also reviewed the benefit of consistent device use of CPAP for hypertension and gastric reflux. 2. Obesity, unspecified. Currently patients BMI is 35.6. Obesity increases the risk of apnea, CPAP pressure requirements and overall health risks especially cardiovascular and diabetes. Thus patient is advised to lose weight. Weight loss can be done with reducing portion size, reducing refined foods and balancing content with vegetables, fruit and whole grain foods. In addition, patient encouraged to get regular exercise. The patient's CPAP pressure range should accommodate some weight loss. Symptoms to report for additional pressure adjustment discussed. * Continue auto CPAP pressure at 9-14 cmH2O * Notify me if snoring with mask or feeling that the pressure is too much or too little * Attempt to lose weight * Call this office if any problems using CPAP * Return for follow up in 1-2 months, or sooner if concerns arise Counseling Topics: Spare mask, Weight loss health impact Visit Type: In Office Time Spent with Patient (minutes): 21 Provider Statement: I spent 100% of the Face to Face Visit with the patient with greater than 50% spent counseling the patient and coordination of care.
[2022-04-26 16:45] VITALS: BP 126/76
== END 2022-04-26 16:10 | disposition home or self-care (01) ==
LOC: SC 16:09
PROVIDERS: ATTEND Nurse Practitioner Family
DX: G47.33 Obstructive sleep apnea (adult) (pediatric) (principal); E66.9 Obesity, unspecified; Z68.35 Body mass index [BMI] 35.0-35.9, adult
CPT/HCPCS: 99212; 99213

== ENCOUNTER 2022-06-28 16:01 | Outpatient (CLI) | payer OTHER ==
--- NOTE | 2022-06-28 16:25 | SLEEP CARE CONSULTATION ---
Information from patient questionnaire entered by Serena Chowdhury. I have reviewed and concur with the information entered by Serena Chowdhury. This document represents the service I personally performed and the decisions made by me, Mel Salomon ARNP. History of Present Illness Service Date and Time: 06/28/2022 1601 Previous diagnosis: Severe, Obstructive Sleep Apnea-Hypopnea Syndrome AHI: 39.2 (in 2019) Reason for follow up: other (2 MONTH F/U ) Equipment type: CPAP ([facility]) Equipment obtained from: [facility] (getting supplies as needed) Mask style: Full face Backup mask available: Yes (old mask) Last cushion change: this morning Prior sleep studies: Yes Year and Where: 2018 - [facility] Type of Sleep Study: Polysomnography (Split-night) HPI additional information: TAD HARRIS was diagnosed to have severe, AHI 39.2, obstructive sleep apnea- hypopnea syndrome and returned today for CPAP therapy two month follow-up. Sleep Study - Results Type of Sleep Study: Polysomnography (Split-night) Prior sleep studies: Yes Year and Where: 2018 - [facility] CPAP Compliance Data - Data Reviewed with Patient Average duration of nightly device use: 4 hours, 31 minutes, 13 seconds Compliance rate %: 70 (04/29/22-06/27/22; 60/60 days used) Current pressure setting (cmH2O): 9-14 Average residual AHI: 3.8 Average large leak: 23 mins 18 secs Subjective Patient concerns: reports: dry mouth, nose, throat (light; not every day). denies: aerophagia, mask discomfort, air blowing in eyes, mask leak noise, condensation in mask/hose, nasal congestion, epistaxis Observed to snore while using device: No Current pressure setting perceived as: comfortable On therapy, patient: reports: sleeping better, awakening more refreshed, more rested overall. denies: drowsiness while driving Initial [place] Sleepiness Scale score: 7 (2019) Current [place] Sleepiness Scale score: 5 (06/28/22) Allergies and Home Medications Drug allergies reviewed: Yes (NKDA) Home medication list reviewed: Yes (no changes) Allergy and home medication list: Allergies No Known Drug Allergies Allergy (Verified 02/07/19 11:43) Review of Systems Review of systems same as previous: No (RODRIGO in August 2022) Physical Exam Vital signs obtained and entered by: DANYELL RAHMAN Blood Pressure: 152/88 (left arm ) Cuff size: regular Heart Rate: 43 O2 Saturation: 97 Height: 6 ft 3 in Weight: 285 lb Body Mass Index: 35.6 BMI Classification: Obese Impression and Plan 1. Obstructive Sleep Apnea-Hypopnea Syndrome, severe, with good treatment compliance and good apnea control. On CPAP therapy, the patient has better sleep quality and is more rested overall. Patient has brought up his compliance to 70%. I encouraged him to continue to increase time in mask to get full benefit of his CPAP therapy. He does get occasional light dry mouth and will adjust humidity as needed. I will write a prescription to update his supplies and then we can follow up with him next year. Patient's apnea severity and rationale for treatment to reduce apnea, improve sleep quality and reduce cardiovascular and cerebrovascular events was reviewed. I also reviewed the benefit of consistent device use of CPAP for hypertension and gastric reflux. 2. Obesity, unspecified. Currently patients BMI is 35.6. Obesity increases the risk of apnea, CPAP pressure requirements and overall health risks especially cardiovascular and diabetes. Thus patient is advised to lose weight. * Continue auto CPAP pressure at 9-14 cmH2O * Update supplies * Notify me if snoring with mask or feeling that the pressure is too much or too little * Attempt to lose weight * Call this office if any problems using CPAP * Return for follow up in 1 year, or sooner if concerns arise Counseling Topics: Spare mask, Weight loss health impact Visit Type: In Office Time Spent with Patient (minutes): 14 Provider Statement: I spent 100% of the Face to Face Visit with the patient with greater than 50% spent counseling the patient and coordination of care.
[2022-06-28 16:26] VITALS: BP 152/88
== END 2022-06-28 16:02 | disposition home or self-care (01) ==
LOC: SC 16:01
PROVIDERS: ATTEND Nurse Practitioner Family
DX: G47.33 Obstructive sleep apnea (adult) (pediatric) (principal); E66.9 Obesity, unspecified; Z68.35 Body mass index [BMI] 35.0-35.9, adult
CPT/HCPCS: 99212